=== PATIENT | female | born 1940 ===

== ENCOUNTER 2019-06-09 09:15 | Day surgery (SDC) | payer MEDICARE, OTHER ==
[~2019-06-09] VITALS: Ht 162.6 cm; Wt 82.3 kg
[~2019-06-09 09:15] MED LIST: OMEPRAZOLE MAGN20 MG PO
[2019-06-09] MEDS ORDERED: LISI5 (10:24)
--- NOTE | 2019-06-09 10:24 | NUR ---
06/09/19 1023 TAMICA RIOJAS ONE BAD IV DUE TO PT MOVING AND BEING BLOWN, ONE GOOD IV IN LEFT AC BY JACLYN, PT REFUSED HANDS BEING DRAWN DUE TO HAND PAIN.
[2019-06-09] MEDS ORDERED: ASCO500 (10:25)
[2019-06-09] MEDS ORDERED: VITAMIN E400 UNI1 (10:25)
[2019-06-09] MEDS ORDERED: OLIVE LEAF EXT250 MG (10:26)
[2019-06-09] MEDS ORDERED: OMEG1CAP30 (10:26)
[2019-06-09] MEDS ORDERED: Coq-10100 MG (10:26)
[2019-06-09] MEDS ORDERED: Hair, Skin & N1 EACH (10:27)
[2019-06-09] MEDS ORDERED: CALTRATE 600 +1 EACH (10:27)
[2019-06-09] MEDS ORDERED: STRESS B-COMPL1 EACH (10:28)
--- NOTE | 2019-06-09 12:20 | NUR ---
06/09/19 1220 Sushma Vasquez PT. VERBALIZES HAVING A LITTLE BIT OF A STOMACH ACHE. PT. INSTRUCTED PROBABLY SOME AIR IN HER COLON & EVENTUALLY IT WILL ABSORB.
== END 2019-06-09 12:00 | disposition home or self-care (01) ==
LOC: ORSCSDS 09:15
PROVIDERS: Surgery
PROC: 0DJD8ZZ Inspection of Lower Intestinal Tract, Via Natural or Artificial Opening Endoscopic (ICD-10-PCS; principal; 2019-06-09 10:30)
DX: Z12.11 Encounter for screening for malignant neoplasm of colon (principal); Z86.010 Personal history of colon polyps; K57.30 Diverticulosis of large intestine without perforation or abscess without bleeding; K21.9 Gastro-esophageal reflux disease without esophagitis; I10 Essential (primary) hypertension; F41.8 Other specified anxiety disorders; E78.5 Hyperlipidemia, unspecified; E66.9 Obesity, unspecified; Z68.31 Body mass index [BMI] 31.0-31.9, adult; Z79.899 Other long term (current) drug therapy
CPT/HCPCS: J2704; J7120

== ENCOUNTER → 2020-03-13 | Outpatient (CLI) | payer MEDICARE, OTHER ==
[~2020-03-13] MED LIST changes: +ASCO500; +CALTRATE 600 +1 EACH; +Coq-10100 MG; +Hair, Skin & N1 EACH; +LISI5; +OLIVE LEAF EXT250 MG; +OMEG1CAP30; +STRESS B-COMPL1 EACH; +VITAMIN E400 UNI1
[2020-03-13 11:58] LABS: Bilirubin, Urine Neg (Neg); Blood, Urine 4+ (Neg); Glucose Qualitative, Urine Neg (Neg); Ketones, Urine Neg (Neg); Leukocyte Esterase, Urine 3+ (Neg); Nitrite, Urine Neg (Neg); Protein, Urine 2+ (Neg); Specific Gravity, Urine 1.005 (1.003-1.022); Urobilinogen, Urine NORM (Normal)
[2020-03-13 12:06] LABS: Appearance, Urine Hazy (Clear); Bacteria Mod /hpf; Color, Urine Yellow (P-Yellow); Red Blood Cells, Urine TNTC /hpf (0-2); Squamous Epithelial Cells Not Seen /hpf (Few); White Blood Cells, Urine TNTC /hpf (0-5)
== END | disposition home or self-care (01) ==
LOC: LAB SHORT 10:59 → OLS 10:59 → LAB FUT 03-13 10:35
PROVIDERS: Internal Medicine
DX: R30.0 Dysuria (principal)
CPT/HCPCS: 81001; 87077; 87086; 87186

== ENCOUNTER 2020-05-20 18:32 | Emergency (ER) | payer MEDICARE, OTHER ==
[~2020-05-20] VITALS: Ht 165.1 cm; Wt 81.7 kg
[~2020-05-20 18:32] MED LIST changes: -ASCO500; +ASCO500 PO; -Coq-10100 MG; +Coq-10100 MG PO; -LISI5; +LISI5 PO; +LOVAZA1 G1 PO; -OMEG1CAP30; -VITAMIN E400 UNI1; +VITAMIN E400 UNI1 PO
[2020-05-20] MEDS ORDERED: TRAM50 PO (22:14)
[2020-05-29] MEDS ORDERED: MAGCHL64ER PO (14:52)
[2020-05-29] MEDS ORDERED: B COMPLETE PO (14:53)
[2020-05-29] MEDS ORDERED: CALCIUM 600 +1 EA11 PO (14:53)
[2020-05-29] MEDS ORDERED: VIT1CAPS12 PO ×2 (14:53→14:56)
[2020-05-29] MEDS ORDERED: ESSIAC TONIC PO (14:58)
[2020-05-29] MEDS ORDERED: [UNRECOGNIZED DRUG - OTHER] PO (14:59)
[2020-05-29] MEDS ORDERED: [UNRECOGNIZED DRUG - OTHER] PO (15:00)
== END 2020-05-20 22:55 | disposition home or self-care (01) ==
LOC: ER 18:32
DX: S52.502A Unspecified fracture of the lower end of left radius, initial encounter for closed fracture (principal); Z88.0 Allergy status to penicillin; Z88.8 Allergy status to other drugs, medicaments and biological substances; Z91.048 Other nonmedicinal substance allergy status; Z91.018 Allergy to other foods; Z87.891 Personal history of nicotine dependence; W01.0XXA Fall on same level from slipping, tripping and stumbling without subsequent striking against object, initial encounter
CPT/HCPCS: 25605; 73110; 99283-25; A9270-GY

== ENCOUNTER → 2021-05-28 | Outpatient (CLI) | payer MEDICARE, OTHER ==
[~2021-05-28] MED LIST changes: +B COMPLETE PO; +CALCIUM 600 +1 EA11 PO; +ESSIAC TONIC PO; +MAGCHL64ER PO; +TRAM50 PO; +VIT1CAPS12 PO; +[UNRECOGNIZED DRUG - OTHER] PO; +[UNRECOGNIZED DRUG - OTHER] PO
[2021-05-28 10:38] LABS: Source, Urine Clean Catch
[2021-05-28 11:05] LABS: Appearance, Urine Cloudy (Clear); Bilirubin, Urine Neg (Neg); Blood, Urine 4+ (Neg); Color, Urine Yellow (P-Yellow); Glucose Qualitative, Urine Neg (Neg); Ketones, Urine Neg (Neg); Leukocyte Esterase, Urine 3+ (Neg); Nitrite, Urine Pos (Neg); Protein, Urine 2+ (Neg); Urobilinogen, Urine NORM (Normal)
[2021-05-28 11:13] LABS: White Blood Cells, Urine TNTC /hpf (0-5)
[2021-05-28 11:14] LABS: Bacteria Many /hpf; Renal Epithelial Few /hpf (0-Rare); Squamous Epithelial Cells Not Seen /hpf (Few)
== END | disposition home or self-care (01) ==
LOC: LAB SHORT 10:32
PROVIDERS: Internal Medicine
DX: R39.15 Urgency of urination (principal)
CPT/HCPCS: 81001; 87077; 87086; 87186

== ENCOUNTER → 2021-09-06 | Outpatient (CLI) | payer MEDICARE, OTHER ==
[2021-09-06 15:47] LABS: Source, Urine Clean Catch
[2021-09-06 15:50] LABS: Appearance, Urine Hazy (Clear); Bilirubin, Urine Neg (Neg); Blood, Urine 4+ (Neg); Color, Urine Yellow (P-Yellow); Glucose Qualitative, Urine Neg (Neg); Ketones, Urine Neg (Neg); Leukocyte Esterase, Urine 3+ (Neg); Nitrite, Urine Pos (Neg); Protein, Urine 1+ (Neg); Specific Gravity, Urine 1.015 (1.003-1.022); Urobilinogen, Urine NORM (Normal)
[2021-09-06 16:07] LABS: Bacteria Many /hpf; Squamous Epithelial Cells Not Seen /hpf (Few); White Blood Cells, Urine TNTC /hpf (0-5)
== END ==
LOC: LAB 13:58 → LAB SHORT 13:58
PROVIDERS: Internal Medicine
DX: R30.0 Dysuria (principal); Z88.0 Allergy status to penicillin; Z88.1 Allergy status to other antibiotic agents; Z91.018 Allergy to other foods; Z91.048 Other nonmedicinal substance allergy status
CPT/HCPCS: 81001; 87077; 87086; 87186